=== PATIENT | female | born 1950 | race Caucasian/White ===

== ENCOUNTER → 2021-09-22 08:33 | Outpatient (CLI) | payer MEDICARE, OTHER, SELFPAY ==
--- NOTE | 2021-09-22 08:36 | DI.RAD.S_ITS ---
PROCEDURE: XR ANKLE LT MIN 3V INDICATIONS: s/p fall TECHNIQUE: 3 views of the ankle were acquired. COMPARISON: [facility], CR, XR TIBIA FIBULA LT 2V, 09/22/2021, 8:36. FINDINGS: Bones: Remote, poorly healed avulsion fracture fragments can be seen distal to the medial and lateral malleoli. No acute fractures or dislocations. The talar dome demonstrates no negrito abnormality. Ankle mortise is normally aligned. No suspicious bony lesions. Degenerative changes are seen throughout. A moderate plantar calcaneal spur is seen. Soft tissues: There is dense calcification seen involving the distal Achilles tendon. Generalized soft tissue swelling is seen. IMPRESSION: No acute fractures are seen. Soft tissue swelling can be seen. Remote avulsion fracture fragments noted distal to the medial and lateral malleoli. If it would be helpful for clinical management decision making, please consider a dedicated ankle CT for further evaluation. Dense calcification can be seen involving the distal Achilles tendon, which is most consistent with remote injury. Dictated by: Jagdeep Reich M.D. on 09/22/2021 at 8:17 Approved by: Jagdeep Reich M.D. on 09/22/2021 at 8:19
--- NOTE | 2021-09-22 08:36 | DI.RAD.S_ITS ---
PROCEDURE: XR TIBIA FIBULA LT 2V INDICATIONS: s/p fall TECHNIQUE: 2 views of the tibia and fibula were acquired. COMPARISON: [facility], CR, XR ANKLE LT MIN 3V, 09/22/2021, 8:36. FINDINGS: Bones: No fractures or dislocations. No suspicious bony lesions. Right knee arthroplasty hardware is seen, without findings of hardware failure or hardware loosening. Soft tissues: Dense calcification can be seen involving the distal Achilles tendon. No additional significant soft tissue abnormality is seen. IMPRESSION: No acute abnormality is detected. Dictated by: Jagdeep Reich M.D. on 09/22/2021 at 8:16 Approved by: Jagdeep Reich M.D. on 09/22/2021 at 8:17
== END ==
PROVIDERS: Referring Provider Nurse Practitioner Family; Visit Provider Nurse Practitioner Family
DX: M79.605 Pain in left leg (principal); M79.89 Other specified soft tissue disorders
CPT/HCPCS: 73590; 73610